=== PATIENT | female | born 1945 | race Native Hawaiian/Other Pacific Islander ===

== ENCOUNTER 2021-12-29 08:34 | Outpatient (CLI) | payer OTHER ==
[~2021-12-29] VITALS: Ht 157.5 cm; Wt 62.1 kg
== END 2021-12-29 19:10 | disposition home or self-care (01) ==
LOC: NM 08:34
PROVIDERS: ATTEND Internal Medicine
DX: R06.09 Other forms of dyspnea (principal); R53.83 Other fatigue
CPT/HCPCS: A9500; J2785